=== PATIENT | female | born 1990 | race Caucasian/White ===

== ENCOUNTER 2020-06-14 13:44 | Outpatient (RCR) | payer OTHER, SELFPAY ==
[2020-06-16] MEDS: RHO(D) IMMUNE GLOBULIN 300 MCG SYRINGE IM (14:30)
== END 2020-09-12 23:59 | disposition home or self-care (01) ==
LOC: ANHLAB 13:44
PROVIDERS: Visit Provider Obstetrics & Gynecology
DX: Z29.13 Encounter for prophylactic Rho(D) immune globulin (principal); O36.0990 Maternal care for other rhesus isoimmunization, unspecified trimester, not applicable or unspecified; Z3A.00 Weeks of gestation of pregnancy not specified
CPT/HCPCS: 36415; 85461; 90384; 96372; J2790

== ENCOUNTER 2020-08-09 21:56 | Inpatient (IN) | payer OTHER, SELFPAY ==
[2020-08-09] VITALS (25 sets, daily range): BP systolic 120–141; BP diastolic 59–90; PULSE 56–75; TEMP 37.2; O2SAT 100; BMI 28.4
--- NOTE | 2020-08-09 22:16 | WPDANESEPP ---
Anes - Eval Pre Procedure Procedure: labor epidural Date/Time: 08/09/20 22:16 Surgeon: Robbie Preop Diagnosis: Labor Pain Pre Op Diagnosis: Induction Patient Data Age: 30 Gender: F Height: Weight: Last Vital Signs Pulse 56 L 08/09/20 22:15 BP 141/90 H 08/09/20 22:15 Allergies Allergy/AdvReac Type Severity Reaction Status Date / Time No Known Allergies Allergy Unknown Verified 08/02/20 15:40 Home Medications Medication Instructions Recorded Confirmed Type prenat.vits,cuco,tzo-wabt-nxpdm 1 tablet PO DAILY 08/02/20 08/02/20 History [ #2] Patient hx anesthesia problems: none Family hx anesthesia problems: none PMFSH Family History Family History Father Diabetes mellitus Social History Social History Smoking status: Never smoker Alcohol intake: never Substance use: never Gender identity (if verbalized by the patient): Female Spiritual care concerns: No Exam Day of Procedure 08/09/20 22:16 Patient weight: obese Heart: regular rate and rhythm Lungs: clear to auscultation and normal air movement Airway: Mallampati scale class II Neurological: alert and oriented
--- NOTE | 2020-08-09 22:18 | WPDANESEFPP ---
Anes - Eval Final PreProcedure Day of Procedure 08/09/20 22:18 Patient weight: obese Heart: regular rate and rhythm Lungs: clear to auscultation and normal air movement Airway: Mallampati scale class II Neurological: alert and oriented ASA classification: II Anesthetic plan: proceed Anesthesia type and monitoring: regional epidural and standard monitoring Informed Consent: The patient's anesthetic plan and its attendant risks and benefits were discussed with the patient/family/POA. Questions were solicited and answers provided to the satisfaction of the patient/family/POA.
[2020-08-09] MEDS: LACTATED RINGERS 1,000 ML 125 ML IV CONT ×2 (22:55→23:27)
[2020-08-09 23:01] LABS: Basophils Absolute Auto 0.1 K/mm3 (0.0-0.1); Basophils Percent Auto 0.5 % (0.2-1.2); Eosinophils Absolute Auto 0.4 K/mm3 (0-0.3); Eosinophils Percent Auto 3.5 % (0-4.4); Hematocrit 35.5 % (37.0-47.0); Hemoglobin 11.7 g/dL (12.0-15.0); Lymphocytes Absolute Auto 2.67 K/mm3 (0.9-3.2); Lymphocytes Percent Auto 26.3 % (18.3-44.2); Mean Corpuscular Hemoglobin 27.8 pg (26-34); Mean Corpuscular Volume 84.3 fl (80-100); Mean Platelet Volume 11.4 fl (7.4-10.4); Monocytes Absolute Auto 0.8 K/mm3 (0.1-0.6); Monocytes Percent Auto 8.3 % (2.6-8.5); Neutrophils Absolute Auto 6.1 K/mm3 (1.3-6.7); Neutrophils Percent Auto 60.4 % (45.5-73.1); Platelet Count Result 193 k/mm3 (150-375); Red Blood Count 4.21 M/mm3 (4.2-5.4); Red Cell Distribution Width 13.8 % (11.5-14.5); White Blood Count 10.2 K/mm3 (4.5-10.0)
[2020-08-10] VITALS (30 sets, daily range): BP systolic 104–133; BP diastolic 51–79; PULSE 51–81; RESP 16–18; TEMP 36.6–36.9; O2SAT 98–100
--- NOTE | 2020-08-10 00:17 | LDADM ---
This patient, Miley Shirley, was admitted to Labor/Delivery/Recovery 107 on 08/09/20 at 21:56. Plans for labor, pain management and were discussed with patient. Patient/family oriented to hospital policies and general routines including ID bracelet, bed and alarms, visiting hours, pain management, procedures, bathroom and other care routines, personal items, smoking policy, room service/diet and guest tray routines, infant security routines, and visiting hours. Patient/Family are encouraged to report perceived risks to care and to ask questions if they do not understand what they are told or what they should do. See OBIX for further documentation.
[2020-08-10] MEDS: OXYTOCIN 30 UNITS/NS 500 ML 30 UNITS/500 ML BAG IV CONT (01:11)
--- NOTE | 2020-08-10 01:28 | WPDOBADMIT ---
Obstetrics - Admit Note Admission Note: record reviewed. Additions to the history and/or subsequent changes in the physical findings follow. 30 y/o at 39 weeks gestation here with contractions. Labor diagnosed. She received an epidural. SROM of clear fluid. Now completely dilated and ready to push. AVSS NST reactive TOCO: contractions every 2-4 min ABD soft, nontender, gravid, vertex EXT nontender Cervix complete / +2 A: IUP at term with labor. P: Anticipate .
--- NOTE | 2020-08-10 01:30 | PM.OBPRVD ---
OB - Delivery Note Procedure Delivery date: 08/10/20 Procedure: Induction method: none Delivery monitor: external FHT and external uterine Route of delivery: Laceration Description: Perineal - 2nd Degree Delivery repair: vicryl (3-0) Specimen: Yes (cord blood) Estimated blood loss (mL): 80 Anesthesia type: Epidural Disposition: PACU Complications: None Narrative: 30 y/o at 39 weeks gestation who presented to the hospital with complaint of contractions. Labor was diagnosed. She received an epidural for pain control. Her labor progressed without stimulation, she had SROM, and her cervix dilated completely. She pushed with good effort and delivered the infant's head to the perineum, followed by the body. The nose and mouth were bulb suctioned. After a delay, the cord was clamped and cut. The infant was handed off the field. Cord blood was collected. The placenta delivered spontaneously and was grossly normal in appearance. The usual 3 vessel cord was noted. A second degree midline perineal laceration was sustained. This was reapproximated using 3 0 Vicryl in the usual layered fashion. Excellent hemostasis resulted as did excellent reapproximation of the normal anatomy. Needle and instrument counts were correct. The patient was taken to recovery room in stable condition. The infant went to the nursery in stable condition. I was present and scrubbed for the entire delivery. Baby Date of : 08/10/20 Time of : 01:06 Weeks of gestation at delivery: 39 gender: Male Weight (pounds): 7 Weight (ounces): 12 presentation: vertex position: Left Occiput Anterior Placenta delivery description: Spontaneous and Normal Configuration cord vessel description: 3 Vessels score one minute: 9 score five minutes: 9
--- NOTE | 2020-08-10 01:33 | PM.OBDSVD ---
DS: Admitting Diagnosis Admitting Diagnosis Admitting Diagnosis: Labor DS: Discharge Diagnosis Discharge Diagnosis (1) (normal spontaneous vaginal delivery): Code(s): O80 - Encounter for full-term uncomplicated delivery Status: Acute OB - DS: Summary OB Procedures : None OB Procedures Intrapartum: Spontaneous Vag Delivery OB Procedures: : None DS: Data Data Completed and Pending Labs on day of discharge: Labs from last 24 hours 08/09/20 08/09/20 08/09/20 22:53 22:53 22:53 WBC 10.2 H RBC 4.21 Hgb 11.7 L Hct 35.5 L MCV 84.3 MCH 27.8 MCHC 33.0 RDW 13.8 Plt Count 193 MPV 11.4 H Immature Gran % (Auto) 1.0 H Neut % (Auto) 60.4 Lymph % (Auto) 26.3 [place] % (Auto) 8.3 Eos % (Auto) 3.5 Baso % (Auto) 0.5 Lymph # (Auto) 2.67 [place] # (Auto) 0.8 H Eos # (Auto) 0.4 H Baso # (Auto) 0.1 Abs Immat Gran (auto) 0.10 H Absolute Neuts (auto) 6.1 Absolute Nucleated RBC 0.0 Nucleated RBC % 0.0 RPR Pending Blood Type O Negative Antibody Screen Negative Discharge Plan Discharge Attending physician on discharge: Raciel Avalos Consulting providers: Spencer Mckeon Discharging Clinician: Raciel Avalos Patient Disposition: Home, Self-Care Activity: may shower, no straining and pelvic rest Diet: regular Wound Care Instructions: follow printed instructions Discharge Instructions: Call or return if temperature above 100.4? F, increased abdominal pain, increased vaginal bleeding or any new problems. Stand Alone Forms: General Discharge Information Follow-up/Referrals: Raciel Avalos MD [Physician] - 6 Weeks Discharge Medications: New ibuprofen 600 mg tablet 600 mg PO Q6H PRN (Reason: cramps) Qty: 30 RF: 0 ferrous sulfate 325 mg (65 mg iron) tablet 325 mg PO DAILY Qty: 30 RF: 0 Continued #2 Tablet 1 tablet PO DAILY RF: 0 Date of admission: 08/09/20 21:56 Primary Care Provider: PHYSICIAN,CERTIFIED [employer] TECHNICIAN Admitting Provider: Raciel Avalos Attending physician on admission: Raciel Avalos Condition: Stable
[2020-08-10] MEDS: OXYTOCIN 30 UNITS/NS 500 ML 30 UNITS/500 ML BAG 125 UNITS IV CONT (01:54)
[2020-08-10] MEDS: BENZOCAINE 20% AER SPR (*SP) 56 GM CAN 1 SPRAY TOPICAL (03:49)
[2020-08-10] MEDS: WITCH HAZEL 40 PADS 1 PAD TOPICAL (03:49)
--- NOTE | 2020-08-10 04:25 | OBPPTRN ---
Patient transferred to post room # 825 via wheelchair with infant in crib. Support person present. Oriented to unit, room, information board, rooming in, admission packet and security measures. Patient verbalizes understanding.
[2020-08-10] MEDS: IBUPROFEN 600 MG TABLET PO ×3 (05:09→22:43)
--- NOTE | 2020-08-10 06:30 | PC.NURSE ---
PT introductions made and plan of care discussed per post , pain management, bottle feeding, daily care activities. PT verbalized understanding of such care.
[2020-08-10 07:58] LABS: Rapid Plasma Reagin Non-Reactive (NonReactive)
[2020-08-10] MEDS: MULTIVIT/MIN/PREN/FOL AC/IRON TABLET 1 TAB PO (09:10)
[2020-08-10] MEDS: DOCUSATE SODIUM 100 MG CAPSULE PO ×2 (09:10→17:18)
[2020-08-10] MEDS: ACETAMINOPHEN 325 MG TABLET 650 MG PO ×3 (09:10→17:17)
[2020-08-11 05:33] LABS: Hematocrit 26.7 % (37.0-47.0); Hemoglobin 8.5 g/dL (12.0-15.0)
--- NOTE | 2020-08-11 07:41 | WPDANLDPN2 ---
Anes-Prog Note L&D Date/Time: 08/11/20 07:41 Comfortable throughout: labor and delivery Neuraxial method: epidural Epidural/Spinal procedure site: clean & non-tender Neuro status: Neuro function grossly intact. Cardiovascular status: normal Respiratory status: normal Airway patency: baseline Mental status: baseline Post-Op hydration status: normal Vital Signs: Last Vital Signs Temp 36.6 C 08/10/20 19:44 Pulse 67 08/10/20 19:44 Resp 16 08/10/20 19:44 BP 124/62 08/10/20 19:44 Pulse Ox 100 08/10/20 19:44 Pain score (VAS): 1 Post-procedural complaints: none Patient feedback: Patient satisfied with anesthetic care.
--- NOTE | 2020-08-11 07:44 | P.DS_ITS ---
DS: Admitting Diagnosis Admitting Diagnosis Admitting Diagnosis: Patient was admitted in active labor. She underwent spontaneous vaginal delivery which was unremarkable. Her hospital course was unremarkable. She was, voiding without difficulty, generally without complaints. There were no complications to her stay DS: Summary Time Spent with Patient Time attestation: Total time spent providing and/or coordinating discharge services: Exam Const: General: no acute distress Eyes: General: appearance normal, both eyes and all related structures Neck: Neck: supple and no JVD Thyroid: thyroid normal Resp: Effort & Inspection: normal respiratory effort Auscultation: clear to auscultation bilaterally Cardio: Rate: regular rate Rhythm: regular rhythm GI: Inspection: non-distended GI Palp: Yes Soft to palpation, No Tenderness to palpation present (GI) and No Guarding due to palpation present (GI) Auscultation: normal bowel sounds : General: Yes bladder normal to palpation External Female Exam: normal external appearance Speculum Exam - Vagina: normal vaginal discharge and No vaginal bleeding Speculum Exam - Cervix: nontender Bimanual exam- vagina & uterus: bladder normal to palpation and No Cervical tenderness present OB/external & speculum: No vaginal bleeding Skin: General skin exam: no rashes or lesions noted Extrem: General: normal to inspection and no edema Psych: Mental Status: mental status grossly normal Affect: normal affect DS: Data Data Completed and Pending Labs on day of discharge: Labs from last 24 hours 08/11/20 08/11/20 08/09/20 04:25 04:25 22:53 Hgb 8.5 L D Hct 26.7 L RPR Non-reactive Blood Type O Negative Antibody Screen TNP Screen Negative Baby's Blood Type O pos Baby's ALFA Negative Doses of RhIg Required 1 Discharge Plan Discharge Attending physician on discharge: Raciel Avalos Consulting providers: Spencer Mckeon Discharging Clinician: Raciel Avalos Patient Disposition: Home, Self-Care Activity: may shower, no straining and pelvic rest Diet: regular Wound Care Instructions: follow printed instructions Discharge Instructions: Call or return if temperature above 100.4? F, increased abdominal pain, increased vaginal bleeding or any new problems. Stand Alone Forms: General Discharge Information Follow-up/Referrals: Raciel Avalos MD [Physician] - 6 Weeks Discharge Medications: New ibuprofen 600 mg tablet 600 mg PO Q6H PRN (Reason: cramps) Qty: 30 RF: 0 Continued #2 Tablet 1 tablet PO DAILY RF: 0 Date of admission: 08/09/20 21:56 Primary Care Provider: PHYSICIAN,BOAT BUILDER AND REPAIRER Admitting Provider: Raciel Avalos Attending physician on admission: Raciel Avalos Condition: Stable
[2020-08-11 07:45] VITALS: BP 139/73; PULSE 53; RESP 18; TEMP 36.9; O2SAT 100
--- NOTE | 2020-08-11 07:45 | PM.OBPNVD ---
OB - PN: Subj Subjective Date/time seen: 08/11/20 07:45 Patient comments: no complaints and pain well controlled baby status: doing well and nursing well OB - PN: Obj Data Labs CBC & Chem 7: 08/11/20 04:25 Labs: Laboratory Results - last 24 hr 08/09/20 08/11/20 08/11/20 22:53 04:25 04:25 Hgb 8.5 L D Hct 26.7 L RPR Non-reactive Blood Type O Negative Antibody Screen TNP Screen Negative Baby's Blood Type O pos Baby's ALFA Negative Doses of RhIg Required 1 OB - PN A/P Plan day: 1 Plan: routine care, discharge home and follow up 6 weeks Time Spent With Patient Time: Total time spent is greater than 50% in coordination of care (as documented) at patient's floor/unit and/or counseling patient: Time with patient: less than 15 minutes Review of Systems Review of Systems: All systems reviewed & are unremarkable except as noted in HPI and below Exam Const: General: no acute distress Eyes: General: appearance normal, both eyes and all related structures Neck: Neck: supple and no JVD Thyroid: thyroid normal Resp: Effort & Inspection: normal respiratory effort Auscultation: clear to auscultation bilaterally Cardio: Rate: regular rate Rhythm: regular rhythm GI: Inspection: non-distended GI Palp: Yes Soft to palpation, No Tenderness to palpation present (GI) and No Guarding due to palpation present (GI) Auscultation: normal bowel sounds : General: Yes bladder normal to palpation External Female Exam: normal external appearance Speculum Exam - Vagina: normal vaginal discharge and No vaginal bleeding Speculum Exam - Cervix: nontender Bimanual exam- vagina & uterus: bladder normal to palpation and No Cervical tenderness present OB/external & speculum: No vaginal bleeding Skin: General skin exam: no rashes or lesions noted Extrem: General: normal to inspection and no edema Psych: Mental Status: mental status grossly normal Affect: normal affect
[2020-08-11] MEDS: IBUPROFEN 600 MG TABLET PO (08:47)
[2020-08-11] MEDS: DOCUSATE SODIUM 100 MG CAPSULE PO (08:47)
[2020-08-11] MEDS: POLYSACCHARIDE IRON COMPLEX 150 MG CAPSULE PO (08:47)
[2020-08-11] MEDS: RHO(D) IMMUNE GLOBULIN 300 MCG SYRINGE IM (09:59)
--- NOTE | 2020-08-11 11:00 | PC.NURSE ---
Patient received instructions on viewing the discharge video Mother & Baby Care, The First Two Weeks online. Patient was given the opportunity and encouraged to ask questions. Patient verbalized understanding of information shared and has been given the mother/baby guide for home reference.
[2020-08-12 10:15] VITALS: BP 125/69; PULSE 67; RESP 20; TEMP 36.8; O2SAT 100
== END 2020-08-11 11:21 | disposition home or self-care (01) | DRG 807 ==
LOC: ANHLDR 08-10 01:34 → ANHOB2 08-10 05:00
PROVIDERS: Admitting Provider Obstetrics & Gynecology; Visit Provider Obstetrics & Gynecology
DX: O99.214 Obesity complicating childbirth (principal); Z37.0 Single live birth; Z3A.39 39 weeks gestation of pregnancy; E66.9 Obesity, unspecified; O70.1 Second degree perineal laceration during delivery
CPT/HCPCS: 36415; 85014; 85018; 85025; 85461; 86592; 86850; 86900; 86901; 90384; A9270; J2590; J2790; J2795; J7120